=== PATIENT | female | born 1950 | race Caucasian/White ===

== ENCOUNTER → 2018-12-22 | Outpatient (REF) | payer MEDICARE, OTHER ==
[~2018-12-22] MED LIST: CIPROFLOXACN500 MG PO
== END | disposition home or self-care (01) ==
LOC: LABSPEC 09:33
PROVIDERS: ATTEND Nurse Practitioner Family
DX: D64.89 Other specified anemias (principal)

== ENCOUNTER 2021-08-17 07:11 | Emergency (ER) | payer MEDICARE, OTHER ==
[~2021-08-17] VITALS: Ht 175.3 cm; Wt 104.0 kg
[2021-08-17 07:54] LABS: ALBUMIN 4.1 g/dL (3.2-5.0); ALKALINE PHOSPHATASE 83 u/l (38-126); AMYLASE 64 u/l (30-110); ANION GAP 10 (6-22 (CALC)); BILIRUBIN, TOTAL 0.6 mg/dL (0.0-1.4); BUN 16 mg/dL (8-23); BUN/CREATININE RATIO 15 (12-20 (CALC)); CARBON DIOXIDE 29 mmol/l (22-30); CHLORIDE 104 mmol/l (95-108); CREATININE 1.1 mg/dL (0.5-1.0); GFR 49 ML/MIN (>=60 (CALC)); GFR FOR AFR.AMER. 59 ML/MIN (>=60 (CALC)); LIPASE 50 u/l (23-300); POTASSIUM 4.1 mmol/l (3.5-5.1); SGOT/AST 25 u/l (9-36); SODIUM 139 mmol/l (137-146); TOTAL PROTEIN 7.2 g/dL (6.3-8.2)
[2021-08-17 07:58] LABS: HEMATOCRIT 41.6 % (37.0-47.0); HEMOGLOBIN 13.5 g/dl (12.0-16.0); IMMATURE GRANULOCYTES 0.1 % (0.0-5.0); MEAN CELL VOLUME 90.2 fL CALC (80.0-100.0); MEAN CORPUSCULAR HGB 29.3 pG CALC (26.0-32.0); MEAN CORPUSCULAR HGB CONC 32.5 g/dL CAL (32.0-36.0); NEUT# 5.46 thou/uL (2.00-7.15); RED BLOOD COUNT 4.61 mill/uL (4.20-5.60); RED CELL DISTRI WIDTH 13.3 % (11.5-15.5)
[2021-08-17 08:07] VITALS: BP 90/51
[2021-08-17 08:48] LABS: ACT PARTIAL THROMBO TIME 26.1 SECONDS (20.0-32.5); INTERNATIONAL NORMALIZED RATIO 0.9 RATIO (0.7-1.3); PROTHROMBIN TIME 9.9 SECONDS (9.0-12.5)
== END 2021-08-17 08:15 | disposition short-term general hospital (02) ==
LOC: ED 07:11
DX: R07.9 Chest pain, unspecified (principal); R00.1 Bradycardia, unspecified; I95.9 Hypotension, unspecified; J45.909 Unspecified asthma, uncomplicated; Z20.822 Contact with and (suspected) exposure to COVID-19

== ENCOUNTER 2022-08-29 12:52 | Emergency (ER) | payer MEDICARE, OTHER ==
[~2022-08-29] VITALS: Ht 175.3 cm; Wt 106.0 kg
[~2022-08-29 12:52] MED LIST changes: +ADVAIR DISK1 INH; +AMITRIPTYLINE H10 MG PO; +ESCITALOPRAM OX10 MG PO; +LOPRESSOR25 M1 PO; +LYRICA50 MG PO; +PROAIR HFA108 MCG/AC; +PROTONIX20 M1 PO; +SIMVASTATIN10 MG PO; +SINGULAIR10 MG PO
[2022-08-29 13:29] VITALS: BP 135/61
[2022-08-29 13:31] VITALS: BP 116/56
[2022-08-29 14:01] VITALS: BP 115/54
[2022-08-29 14:31] VITALS: BP 86/47
[2022-08-29 15:01] VITALS: BP 113/53
[2022-08-29 16:02] VITALS: BP 113/53
== END 2022-08-29 16:30 | disposition home or self-care (01) ==
LOC: ED 12:52
DX: S41.112A Laceration without foreign body of left upper arm, initial encounter (principal); J45.909 Unspecified asthma, uncomplicated; Z79.01 Long term (current) use of anticoagulants; X58.XXXA Exposure to other specified factors, initial encounter

== ENCOUNTER 2022-10-03 00:30 | Emergency (ER) | payer MEDICARE, OTHER ==
[~2022-10-03] VITALS: Ht 175.3 cm; Wt 106.4 kg
[2022-10-03] MEDS ORDERED: XARELTO20 MG PO (02:51)
[2022-10-03] MEDS ORDERED: FLECAINIDE50 MG PO (02:52)
[2022-10-03] MEDS ORDERED: SPIRONOLACTONE50 MG PO (02:53)
[2022-10-03] MEDS ORDERED: DOXYCYCLINE100 MG PO (04:32)
[2022-10-03 05:09] VITALS: BP 154/83
== END 2022-10-03 05:09 | disposition home or self-care (01) ==
LOC: ED 00:30
PROC: 0HQKXZZ Repair Right Lower Leg Skin, External Approach (ICD-10-PCS; principal; 2022-10-03)
DX: S81.011A Laceration without foreign body, right knee, initial encounter (principal); I10 Essential (primary) hypertension; J45.909 Unspecified asthma, uncomplicated; E78.5 Hyperlipidemia, unspecified; W01.0XXA Fall on same level from slipping, tripping and stumbling without subsequent striking against object, initial encounter; Y92.009 Unspecified place in unspecified non-institutional (private) residence as the place of occurrence of the external cause

== ENCOUNTER 2023-03-23 14:24 | Emergency (ER) | payer MEDICARE, OTHER ==
[~2023-03-23] VITALS: Ht 172.7 cm; Wt 106.1 kg
[~2023-03-23 14:24] MED LIST changes: +DOXYCYCLINE100 MG PO; +FLECAINIDE50 MG PO; +SPIRONOLACTONE50 MG PO; +XARELTO20 MG PO
[2023-03-23 15:05] VITALS: BP 147/75
== END 2023-03-23 15:05 | disposition home or self-care (01) ==
LOC: ED 14:24
DX: S51.812A Laceration without foreign body of left forearm, initial encounter (principal); I10 Essential (primary) hypertension; E78.5 Hyperlipidemia, unspecified; J45.909 Unspecified asthma, uncomplicated; W22.09XA Striking against other stationary object, initial encounter; Y92.009 Unspecified place in unspecified non-institutional (private) residence as the place of occurrence of the external cause; Z79.01 Long term (current) use of anticoagulants

== ENCOUNTER 2023-04-19 14:04 | Emergency (ER) | payer MEDICARE, OTHER ==
[2023-04-19] VITALS (42 sets, daily range): BP systolic 105–143; BP diastolic 47–90
[~2023-04-19] VITALS: Ht 172.7 cm; Wt 105.0 kg
[2023-04-19 14:26] LABS: BASO% 0.2 % (0-3); HEMATOCRIT 42.8 % (37.0-47.0); HEMOGLOBIN 13.5 g/dl (12.0-16.0); IMMATURE GRANULOCYTES 0.1 % (0.0-5.0); LYMPH% 14.9 % (15-41); MEAN CELL VOLUME 91.5 fL CALC (80.0-100.0); MEAN CORPUSCULAR HGB 28.8 pG CALC (26.0-32.0); MEAN CORPUSCULAR HGB CONC 31.5 g/dL CAL (32.0-36.0); MONO% 6.9 % (2-13); NEUT# 6.16 thou/uL (2.00-7.15); NEUT% 76.9 % (42-76); RED BLOOD COUNT 4.68 mill/uL (4.20-5.60); RED CELL DISTRI WIDTH 14.2 % (11.5-15.5)
[2023-04-19 14:50] LABS: ALBUMIN 4.4 g/dL (3.2-5.0); ALKALINE PHOSPHATASE 70 u/l (38-126); ANION GAP 13 (6-22 (CALC)); BILIRUBIN, TOTAL 0.4 mg/dL (0.02-1.3); BUN 17 mg/dL (8-23); BUN/CREATININE RATIO 16 (12-20 (CALC)); CARBON DIOXIDE 26 mmol/l (22-30); CHLORIDE 104 mmol/l (95-108); CREATININE 1.1 mg/dL (0.5-1.0); GFR FOR AFR.AMER. 59 ML/MIN (>=60 (CALC)); GFR OTHER RACES 49 ML/MIN (>=60 (CALC)); POTASSIUM 4.3 mmol/l (3.5-5.1); SGOT/AST 41 u/l (9-36); SODIUM 139 mmol/l (137-146); TOTAL PROTEIN 7.1 g/dL (6.3-8.2)
[2023-04-19] MEDS ORDERED: FEXOFENADINE H180 M1 PO (15:54)
[2023-04-19] MEDS ORDERED: ROSUVASTATIN CA20 MG PO (15:56)
[2023-04-19] MEDS ORDERED: ALLERGY RE50 MCG/ACT (15:59)
[2023-04-19] MEDS ORDERED: ISOSORB MONO10 MG PO (16:03)
== END 2023-04-19 18:53 | disposition short-term general hospital (02) ==
LOC: ED 14:04
PROVIDERS: Family Medicine
DX: I20.0 Unstable angina (principal); I10 Essential (primary) hypertension; I48.91 Unspecified atrial fibrillation; E66.01 Morbid (severe) obesity due to excess calories; E78.5 Hyperlipidemia, unspecified; J45.909 Unspecified asthma, uncomplicated; Z79.01 Long term (current) use of anticoagulants
CPT/HCPCS: J1650

== ENCOUNTER 2023-07-15 03:07 | Emergency (ER) | payer MEDICARE, OTHER ==
[~2023-07-15] VITALS: Ht 172.7 cm; Wt 99.0 kg
[~2023-07-15 03:07] MED LIST changes: +ALLERGY RE50 MCG/ACT; +FEXOFENADINE H180 M1 PO; +ISOSORB MONO10 MG PO; +ROSUVASTATIN CA20 MG PO
[2023-07-15 03:17] VITALS: BP 142/73
[2023-07-15 04:05] VITALS: BP 142/73
== END 2023-07-15 04:05 | disposition home or self-care (01) ==
LOC: ED 03:07
DX: S51.812A Laceration without foreign body of left forearm, initial encounter (principal); I10 Essential (primary) hypertension; I48.91 Unspecified atrial fibrillation; E78.5 Hyperlipidemia, unspecified; J45.909 Unspecified asthma, uncomplicated; W22.09XA Striking against other stationary object, initial encounter; Z95.5 Presence of coronary angioplasty implant and graft; S51.812D Laceration without foreign body of left forearm, subsequent encounter; X58.XXXD Exposure to other specified factors, subsequent encounter; Z79.01 Long term (current) use of anticoagulants

== ENCOUNTER 2023-07-15 09:21 | Emergency (ER) | payer MEDICARE, OTHER ==
[~2023-07-15] VITALS: Ht 172.7 cm; Wt 104.0 kg
[2023-07-15 09:39] VITALS: BP 126/57
== END 2023-07-15 10:20 | disposition home or self-care (01) ==
LOC: ED 09:21
DX: S51.812D Laceration without foreign body of left forearm, subsequent encounter (principal); I10 Essential (primary) hypertension; I48.91 Unspecified atrial fibrillation; E78.5 Hyperlipidemia, unspecified; J45.909 Unspecified asthma, uncomplicated; X58.XXXD Exposure to other specified factors, subsequent encounter; Z79.01 Long term (current) use of anticoagulants

== ENCOUNTER 2023-07-16 14:13 | Emergency (ER) | payer MEDICARE, OTHER ==
[~2023-07-16] VITALS: Ht 172.7 cm; Wt 104.0 kg
[2023-07-16 17:56] VITALS: BP 130/67
== END 2023-07-16 18:03 | disposition home or self-care (01) ==
LOC: ED 14:13
DX: S51.812D Laceration without foreign body of left forearm, subsequent encounter (principal); I10 Essential (primary) hypertension; I48.91 Unspecified atrial fibrillation; J45.909 Unspecified asthma, uncomplicated; E78.5 Hyperlipidemia, unspecified; X58.XXXD Exposure to other specified factors, subsequent encounter; Z79.01 Long term (current) use of anticoagulants

== ENCOUNTER 2023-11-11 19:00 | Emergency (ER) | payer MEDICARE, OTHER ==
[~2023-11-11] VITALS: Ht 172.7 cm; Wt 105.0 kg
[2023-11-11] VITALS (14 sets, daily range): BP systolic 43–158; BP diastolic 21–87
[~2023-11-11 19:00] MED LIST changes: +ASPIRIN 81 LOW81 MG PO; +CLOPIDOGREL75 MG PO; +ISOSORBIDE MONO30 MG PO; +MIDODRINE5 MG PO; +MULTIVITAMI9 PO; +NITROGLYCERIN0.4 MG; +PREGABALIN100 MG PO; +ZOFRAN4 MG/TAB PO
[2023-11-11] MEDS ORDERED: TRAMADOL HCL50 MG PO (21:17)
[2023-11-11 22:17] LABS: BASO% 0.5 % (0-3); EOS% 1.2 % (0-8); HEMATOCRIT 34.3 % (37.0-47.0); IMMATURE GRANULOCYTES 0.2 % (0.0-5.0); LYMPH% 20.1 % (15-41); MEAN CELL VOLUME 89.8 fL CALC (80.0-100.0); MEAN CORPUSCULAR HGB 28.8 pG CALC (26.0-32.0); MEAN CORPUSCULAR HGB CONC 32.1 g/dL CAL (32.0-36.0); MONO% 8.6 % (2-13); NEUT# 7.47 thou/uL (2.00-7.15); NEUT% 69.4 % (42-76); RED BLOOD COUNT 3.82 mill/uL (4.20-5.60); RED CELL DISTRI WIDTH 14.8 % (11.5-15.5)
[2023-11-11 22:38] LABS: BUN 17 mg/dL (8-23); BUN/CREATININE RATIO 18 (12-20 (CALC)); CARBON DIOXIDE 24 mmol/l (22-30); CHLORIDE 101 mmol/l (95-108); CREATININE 0.9 mg/dL (0.5-1.0); GFR FOR AFR.AMER. > 60 ML/MIN (>=60 (CALC)); GFR OTHER RACES > 60 ML/MIN (>=60 (CALC)); SODIUM 131 mmol/l (137-146)
[2023-11-11 22:40] LABS: ANION GAP 10 (6-22 (CALC)); POTASSIUM 4.3 mmol/l (3.5-5.1)
[2023-11-12 08:23] VITALS: BP 112/59
[2023-11-12] MEDS ORDERED: CEPHALEXIN500 MG PO (08:33)
== END 2023-11-12 08:50 | disposition home or self-care (01) ==
LOC: ED 19:00
PROVIDERS: Family Medicine
PROC: 0HQLXZZ Repair Left Lower Leg Skin, External Approach (ICD-10-PCS; principal; 2023-11-11)
DX: S81.012A Laceration without foreign body, left knee, initial encounter (principal); S81.011A Laceration without foreign body, right knee, initial encounter; I95.1 Orthostatic hypotension; N18.30 Chronic kidney disease, stage 3 unspecified; G62.9 Polyneuropathy, unspecified; I48.91 Unspecified atrial fibrillation; J44.9 Chronic obstructive pulmonary disease, unspecified; W01.0XXA Fall on same level from slipping, tripping and stumbling without subsequent striking against object, initial encounter; Z20.822 Contact with and (suspected) exposure to COVID-19

== ENCOUNTER 2024-12-14 07:58 | Day surgery (SDC) | payer MEDICARE, OTHER ==
[~2024-12-14] VITALS: Ht 165.1 cm; Wt 103.4 kg
[~2024-12-14 07:58] MED LIST changes: +BREZTRI AEROSPH1 AER; +CEFDINIR300 MG PO; +CEPHALEXIN500 MG PO; +FLUTICASON PROP; +MELOXICAM15 MG PO; +MULTAQ400 MG PO; +PLAVIX75 MG PO; +STOOL SOFTNR PO; +TRAMADOL HCL50 MG PO; +TUMS E-X 750750 MG PO; +VENOFER20 MG/ML IV
[2024-12-14] MEDS ORDERED: SODIUM CHLORIDE 0.9% 1,000 ML IV ONE (08:23)
[2024-12-14] MEDS ORDERED: FAMOTIDINE 10MG/ML 2ML SDV IV ONE (08:23)
[2024-12-14 10:21] VITALS: BP 145/71
[2024-12-14] MEDS ORDERED: LIDOCAINE HCL 2% 2ML SDV IV ONE (16:05)
[2024-12-14] MEDS ORDERED: PROPOFOL 200 MG/20 ML VIAL IV ONE (16:05)
[2024-12-14] MEDS ORDERED: GLYCOPYRROLATE 0.2 MG/ML IV ONE (16:05)
== END 2024-12-14 10:37 | disposition home or self-care (01) ==
LOC: ENDO 07:58 → ORM 10:05 → ENDO 10:05 → ORM 11:15
PROVIDERS: ATTEND Surgery
PROC: 0DJD8ZZ Inspection of Lower Intestinal Tract, Via Natural or Artificial Opening Endoscopic (ICD-10-PCS; principal; 2024-12-14)
PROC: 0DB48ZX Excision of Esophagogastric Junction, Via Natural or Artificial Opening Endoscopic, Diagnostic (ICD-10-PCS; 2024-12-14)
PROC: 0DB68ZX Excision of Stomach, Via Natural or Artificial Opening Endoscopic, Diagnostic (ICD-10-PCS; 2024-12-14)
DX: Z12.11 Encounter for screening for malignant neoplasm of colon (principal); K57.30 Diverticulosis of large intestine without perforation or abscess without bleeding; K64.8 Other hemorrhoids; K21.00 Gastro-esophageal reflux disease with esophagitis, without bleeding; K31.7 Polyp of stomach and duodenum; K44.9 Diaphragmatic hernia without obstruction or gangrene; I10 Essential (primary) hypertension; J44.89 Other specified chronic obstructive pulmonary disease; I48.91 Unspecified atrial fibrillation; G62.9 Polyneuropathy, unspecified; Z86.0100 Personal history of colon polyps, unspecified
CPT/HCPCS: 43239; G0121; J1596